=== PATIENT | female | born 1955 | race American Indian/Alaskan Native ===

== ENCOUNTER 2017-07-07 10:16 | Outpatient (CLI) | payer MEDICARE ==
--- NOTE | 2017-07-07 15:52 | XRay Report ---
CERVICAL SPINE SERIES THREE VIEWS: 07/07/17 10:16:00 CLINICAL: Neck pain. FINDINGS: Straightening of the C-spine and reversal of curvature at C4-5. Decrease height of the C5 vertebral body and grade I C4-5 spondylolisthesis. Disc space narrowing and anterior osteophytes the C5-6 and C6-7. Some widening of the C4-5 disc space with anterior osteophytes. Multilevel facet joint disease. The odontoid and C1 appear to be intact. Normal airway and soft tissues. IMPRESSION: Moderate multilevel degenerative disc disease and multilevel facet joint disease. Grade I C4-5 spondylolisthesis. Recommend flexion and extension views to exclude instability at C4-5.
== END 2017-07-07 10:17 | disposition home or self-care (01) ==
LOC: SPVIMAG 10:16
DX: M50.30 Other cervical disc degeneration, unspecified cervical region (principal); M43.12 Spondylolisthesis, cervical region; M25.78 Osteophyte, vertebrae; M53.82 Other specified dorsopathies, cervical region
CPT/HCPCS: 72040

== ENCOUNTER 2017-08-11 09:39 | Outpatient (CLI) | payer MEDICARE ==
--- NOTE | 2017-08-11 11:15 | XRay Report ---
XRAY CERVICAL SPINE WITH FLEXION-EXTENSION FIVE VIEWS: 08/11/17 09:39:00 CLINICAL: Neck pain. FINDINGS: Mild cervical levoscoliosis and moderate degenerative change. Degenerative disc disease at C5-6 and C6-7 with narrowing of the disc spaces and large anterior osteophytes. The C5 and C6 vertebral bodies are also decreased in height. Grade 1 C4-5 spondylolisthesis in the neutral position and in flexion which corrects with extension. There is also corresponding movement at the facets. There is also grade I C7-T1 spondylolisthesis in extension that corrects in the neutral position and in flexion. Multilevel facet joint disease. No fracture. The odontoid and C1 are intact. Normal soft tissues and airway. IMPRESSION: 1. Moderate degenerative disc disease at C5-6 and C6-7. 2. Grade I C4-5 spondylolisthesis and grade I and C7-T1 spondylolisthesis with instability at both levels as described above. 3. Multilevel facet joint arthropathy.
== END 2017-08-11 09:40 | disposition home or self-care (01) ==
LOC: SPVIMAG 09:39
DX: M50.323 Other cervical disc degeneration at C6-C7 level (principal); M50.322 Other cervical disc degeneration at C5-C6 level; M41.82 Other forms of scoliosis, cervical region; M43.13 Spondylolisthesis, cervicothoracic region; M12.88 Other specific arthropathies, not elsewhere classified, other specified site
CPT/HCPCS: 72050

== ENCOUNTER 2017-09-29 09:28 | Outpatient (CLI) | payer MEDICARE ==
--- NOTE | 2017-09-29 11:19 | Mammography Report ---
BILATERAL MAMMOGRAM: FINDINGS: There are scattered fibroglandular densities (approximately 25%-50% glandular). No mass, distortion, suspicious calcification, or skin change is seen. CAD was utilized. IMPRESSION: Negative mammogram. There is no mammographic evidence of malignancy. RECOMMENDATION: Follow-up per ACS guidelines. BI-RADS CATEGORY: 1 = Negative ACR BI-RADS MAMMOGRAPHIC CODES: 0 = Needs additional imaging evaluation; 1 = Negative; 2 = Benign; 3 = Probably benign; 4 = Suspicious; 5 = Malignant; 6 = Known biopsy-proven malignancy COMMENT: 1. Dense breast tissue, i.e., adenosis, fibrocystic changes, etc., may obscure an underlying neoplasm. 2. Approximately 10% of cancers are not detected with mammography. 3. A negative mammography report should not delay biopsy if a clinically suspicious mass is present. COMMENT: Patient follow-up letters are generated in [employer].
== END 2017-09-29 09:29 | disposition home or self-care (01) ==
LOC: SPVWC 09:28
DX: Z12.31 Encounter for screening mammogram for malignant neoplasm of breast (principal)
CPT/HCPCS: 77067